=== PATIENT | female | born 1975 | race African-American/Black ===

== ENCOUNTER 2017-06-25 06:56 | Day surgery (SDC) | payer OTHER ==
[2017-06-25] VITALS (10 sets, daily range): BP systolic 118–135; BP diastolic 69–86
[~2017-06-25] VITALS: Ht 177.8 cm; Wt 101.2 kg
[~2017-06-25 06:56] MED LIST: AMBIEN10 M1 ORAL
[2017-06-25] MEDS ORDERED: Akten 3.5% 1ml Btl ONE (06:58)
[2017-06-25] MEDS ORDERED: Vigamox Opth Soln ONE (06:58)
[2017-06-25] MEDS ORDERED: Tobradex Opth Susp 2.5ml ONE (06:59)
[2017-06-25] MEDS ORDERED: Phenylephrine 2.5% Op Soln ONE (06:59)
[2017-06-25] MEDS ORDERED: Tropicamide 1% Opth Soln ONE (06:59)
[2017-06-25] MEDS: Vigamox Opth Soln LEFT EYE SCH ×3 (07:21→07:34)
[2017-06-25] MEDS: Phenylephrine 2.5% Op Soln LEFT EYE SCH ×3 (07:21→07:34)
[2017-06-25] MEDS: Tropicamide 1% Opth Soln LEFT EYE SCH ×3 (07:21→07:34)
[2017-06-25] MEDS: Akten 3.5% 1ml Btl LEFT EYE SCH ×3 (07:22→07:34)
[2017-06-25] MEDS: Tobradex Opth Susp 2.5ml LEFT EYE SCH ×3 (07:22→07:34)
[2017-06-25 07:56] LABS: ANION GAP 12 (5-15); CALCIUM 9.1 mg/dL (8.6-10.2); CARBON DIOXIDE 25 mEQ/L (20-30); CHLORIDE 104 mEQ/L (98-107); CREATININE 0.8 mg/dL (0.5-0.9); GLOMERULAR FILTRATION RATE > 60 mL/min (>60); HEMOLYSIS 1; POTASSIUM 3.8 mEQ/L (3.4-4.9); SODIUM 141 mEQ/L (135-145)
--- NOTE | 2017-06-25 08:47 | Pre-Procedure Note/Attestation ---
Pre-Procedure Note/Attestation Complete Prior to Procedure Planned Procedure: left Procedure Narrative: cataract extraction with implant left eye Indications for Procedure Pre-Operative Diagnosis: cataract left eye Attestation I attest that I discussed the nature of the procedure; its benefits; risks and complications; and alternatives (and the risks and benefits of such alternatives ), prior to the procedure, with the patient (or the patient's legal outside sales representative). I attest that, if there was a reasonable possibility of needing a blood transfusion, the patient (or the patient's legal outside sales representative) was given the [facility] standardized written summary, pursuant to the [place] Blood Safety Act ([place] Health and Safety Code # 1645, as amended). I attest that I re-evaluated the patient just prior to the surgery and that there has been no change in the patient's H&P, except as documented below: BELLE SIDDIQI Jun 25, 2017 08:47
[2017-06-25] MEDS ORDERED: LR 1000ml ONE (09:00)
[2017-06-25] MEDS ORDERED: NS Irrig 1000ml ONE (09:00)
[2017-06-25] MEDS ORDERED: fentaNYL 250mcg/5ml ONE (09:00)
[2017-06-25] MEDS ORDERED: Midazolam 2mg/2ml Inj ONE (09:00)
[2017-06-25] MEDS ORDERED: Propofol 10mg/ml 20ml IV ONE (09:00)
[2017-06-25] MEDS ORDERED: Sterile Water Irrig 1000ml IRRIG ONE (09:00)
[2017-06-25] MEDS ORDERED: Glycopyrrolate 0.2mg/ml 1ml Vial ONE (09:00)
--- NOTE | 2017-06-25 09:45 | Anethesia Preoperative Eval ---
Anesthesia Pre-op PMH/ROS General Date of Evaluation: Jun 25, 2017 Time of Evaluation: 09:16 ASA Score: ASA 2 Mallampati Score Class I : Soft palate, uvula, fauces, pillars visible Class II: Soft palate, uvula, fauces visible Class III: Soft palate, base of uvula visible Class IV: Only hard plate visible Mallampati Classification: Class I Surgeon: manuel Diagnosis: Left Eye Cataract Surgical Procedure: Cataract Extraction Anesthesia History: none Family History: no anesthesia problems Allergies: Coded Allergies: No Known Allergies (Unverified , 06/24/17) Medications: see eMAR Anesthesia Pre-op Phys. Exam Physician Exam Last Vital Signs Date Time Temp Pulse Resp B/P (MAP) Pulse Ox O2 Delivery O2 Flow Rate FiO2 06/25/17 07:32 98.3 66 19 129/77 99 Room Air Constitutional: NAD Neurologic: CN 2-12 intact Cardiovascular: RRR Respiratory: CTA Gastrointestinal: S/NT/ND Airway Exam Mallampati Score: Class II MO: full ROM: full Teeth: intact Anesthesia Pre-op A/P Labs Chemistry Test 06/25/17 07:30 Sodium Level 141 mEQ/L (135-145) Potassium Level 3.8 mEQ/L (3.4-4.9) Chloride Level 104 mEQ/L (98-107) Carbon Dioxide Level 25 mEQ/L (20-30) Anion Gap 12 (5-15) Blood Urea Nitrogen 15 mg/dL (7-23) Creatinine 0.8 mg/dL (0.5-0.9) Estimat Glomerular Filtration Rate > 60 mL/min (>60) Glucose Level 101 mg/dL (74-106) Calcium Level 9.1 mg/dL (8.6-10.2) Risk Assessment & Plan Plan: MAC Status Change Before Surgery: No Pre-Antibiotics Given Within 1 Hr of Incision: Everardo Oates M.D. Jun 25, 2017 09:44
--- NOTE | 2017-06-25 09:48 | Immediate Post-Op Evaluation ---
Immediate Post-Op Evalulation Immediate Post-Op Evalulation Procedure: Cataract Extraction Date of Evaluation: Jun 25, 2017 Time of Evaluation: 10:01 IV Fluids: 200 Blood Products: 0 Estimated Blood Loss: 0 Urinary Output: 0 Blood Pressure Systolic: 145 Blood Pressure Diastolic: 78 Pulse Rate: 78 Respiratory Rate: 16 O2 Sat by Pulse Oximetry: 99 Temperature (Fahrenheit): 97.7 Pain Score (1-10): 0 Nausea: No Vomiting: No Patient Status: awake, reacts, patent Hydration Status: adequate Given Within 1 Hr of Incision: Everardo Oates M.D. Jun 25, 2017 09:48
--- NOTE | 2017-06-25 09:50 | 48 Hour Post Anesthesia Eval ---
Post Anesthesia Evaluation Procedure: Cataract Extraction Date of Evaluation: Jun 27, 2017 Time of Evaluation: 08:00 Blood Pressure Systolic: 128 0: 78 Pulse Rate: 74 Respiratory Rate: 15 Temperature (Fahrenheit): 97.7 O2 Sat by Pulse Oximetry: 99 Airway: patent Nausea: No Vomiting: No Pain Intensity: 0 Hydration Status: adequate Mental Status/LOC: patient returned to baseline Follow-up care needed: patient intructions given Everardo Damon M.D. Jun 25, 2017 09:50
--- NOTE | 2017-06-25 09:55 | Brief Operative Note ---
Immediate Post Operative Note Operative Note Pre-op Diagnosis: cataract left eye Procedure: phacoemulsification of cataract with implant left eye Post-op Diagnosis: same as pre-op Surgeon: belle jackson [employer] Load Trash Truck Driver: none Anesthesiologist: alba martin md Anesthesia: MAC Specimen: none Complications: none Condition: unstable Fluids: none Estimated Blood Loss: none Drains: none Implant(s) used?: Yes BELLE JACKSON Jun 25, 2017 09:55
[2017-06-25] MEDS ORDERED: BSS 500ml btl ONE (10:50)
[2017-06-25] MEDS ORDERED: BSS 15ml BTL ONE (10:51)
[2017-06-25] MEDS ORDERED: EPINEPHrine 1mg/1ml Amp ONE (10:51)
[2017-06-25] MEDS ORDERED: Povidone-Iodine 5% opth solution ONE (10:51)
[2017-06-25] MEDS ORDERED: Sodium Hyaluronate 14 mg/ml 0.85ml ONE (10:51)
[2017-06-25] MEDS ORDERED: Lidocaine 1% MPF 10mg/ml 5ml ONE (10:51)
[2017-06-25] MEDS ORDERED: Dexamethasone 4mg/ml vial ONE (10:51)
--- NOTE | 2017-06-26 | Operative Note - Dictated ---
DATE OF OPERATION: 06/25/2017 PREOPERATIVE DIAGNOSIS: Cataract, left eye. POSTOPERATIVE DIAGNOSIS: Cataract, left eye. PROCEDURE: Phacoemulsification of the cataract, left eye, with placement of posterior chamber intraocular lens. SURGEON: Stan Loco M.D. SNOWMAKER: None. ANESTHESIA: MAC/topical. ANESTHESIOLOGIST: Everardo Damon M.D. INDICATION FOR THE PROCEDURE: Poor vision, left eye. DESCRIPTION OF FINDINGS: Central posterior subcapsular cataract, left eye. DESCRIPTION OF PROCEDURE: The patient received a topical anesthetic block consisting of 3.5% Akten eye drops. The eye was then prepped and draped in the usual manner. A lid speculum was placed. An operating Zeiss microscope was positioned. The temporal corneal groove was then made with the amaris blade. A SuperSharp blade made a stab incision at the 6 o'clock position. A 0.1 mL of 1% nonpreserved intracameral lidocaine was injected. Healon was instilled into the anterior chamber and a 2.5/2.8 mm trapezoidal amaris blade was used to complete the temporal corneal wound. A cystotome was used to create an anterior capsular flap. Utrata forceps were used to complete the capsulorrhexis. BSS on a cannula was used to hydrodissect the nucleus. The lens nucleus was phacoemulsified in a phaco-fracture technique. Remaining cortical material was removed with the I/A and the posterior capsule was polished with the I/A on Cap vac. Healon was instilled into the capsular bag and anterior chamber, and an [place] foldable one-piece pre-loaded posterior chamber intraocular lens model PCB00, power 21.0 diopter, serial #[id number] was placed in the capsular bag. The I/A tip was used to remove the Healon and position the lens. The wound edge was hydrated with BSS and a blunt-tipped cannula. The wound was checked and found to be watertight. The lid speculum was removed. A drop of TobraDex and Vigamox was placed. A clear plastic shield was taped over the eye. The patient tolerated the procedure well and left the operating room in good condition. Stan Loco M.D. ([facility] [place]: ASHLEY JOB#: [id number] CC:
== END 2017-06-25 11:20 | disposition home or self-care (01) ==
LOC: SUR 06:56
DX: H25.042 Posterior subcapsular polar age-related cataract, left eye (principal); F32.9 Major depressive disorder, single episode, unspecified; E04.2 Nontoxic multinodular goiter; G43.009 Migraine without aura, not intractable, without status migrainosus; Z78.0 Asymptomatic menopausal state; E66.9 Obesity, unspecified; Z68.30 Body mass index [BMI] 30.0-30.9, adult; Z14.8 Genetic carrier of other disease; Z96.659 Presence of unspecified artificial knee joint
CPT/HCPCS: 36415; 66984; 80048; J0171; J1100; J2250; J2704; J3010; J7120; V2632; 94003; 94150